=== PATIENT | female | born 1945 | race Hispanic/Latino ===

== ENCOUNTER → 2020-08-04 | Outpatient (CLI) | payer MEDICARE ==
[~2020-08-04] MED LIST: ASPI-1012 PO; ATOR10 PO; GLIP2.5T2 PO; HYDR-4457 PO; INSU10VI3 SQ; IOHEXOL 350 MG/ML 100ML INFUS..BTL IV ONE; LISI-809 PO; LORA10CA9 PO; METF-446 PO; RANI150C4 PO
== END | disposition home or self-care (01) ==
LOC: RAH 07-25 08:01
PROVIDERS: ATTEND Internal Medicine Gastroenterology
DX: R10.33 Periumbilical pain (principal); R10.9 Unspecified abdominal pain
CPT/HCPCS: 74178; Q9967

== ENCOUNTER 2021-11-08 08:22 | Day surgery (SDC) | payer OTHER, MEDICARE ==
[2021-11-06 10:00] VITALS: BP 113/51
[2021-11-06 10:25] LABS: BASOPHILS % (AUTO) 0.5 % (0.0-5.0); EOSINOPHILS % (AUTO) 3.5 % (0.0-8.0); HEMATOCRIT 31.9 % (36-48); MEAN CORPUSCULAR HEMOGLOBIN 30.6 pg (27.0-33.0); MEAN CORPUSCULAR HGB CONC 31.7 g/dL (32.0-36.0); MEAN CORPUSCULAR VOLUME 96.7 fL (79-99); MONOCYTES % (AUTO) 6.2 % (3.0-13.0); NEUTROPHILS % (AUTO) 57.6 % (40.0-77.0); PLATELET COUNT (AUTO) 185 K/uL (130-400); RED CELL DISTRIBUTION WIDTH 13.1 % (11.0-15.5)
[2021-11-06 10:34] LABS: CREATININE 0.9 mg/dL (0.5-1.5); POTASSIUM 3.4 mmol/L (3.5-5.1)
[2021-11-08] VITALS (18 sets, daily range): BP systolic 120–144; BP diastolic 41–66
[~2021-11-08] VITALS: Ht 162.6 cm; Wt 62.2 kg
[~2021-11-08 08:22] MED LIST changes: +CEFAZOLIN SODIUM 1 GM VIAL IVP SCH; -IOHEXOL 350 MG/ML 100ML INFUS..BTL IV ONE; -LISI-809 PO; +LISI5TAB21 PO
[2021-11-08] MEDS ORDERED: 0.9%NACL 1000ML 1,000 ML IV ONE (09:09)
[2021-11-08] MEDS ORDERED: OMEP40CA21 PO (09:39)
[2021-11-08] MEDS ORDERED: FURO20TA4 PO (09:39)
[2021-11-08] MEDS ORDERED: ATOR20TA65 PO (09:39)
[2021-11-08] MEDS ORDERED: MONT-39 PO (09:39)
[2021-11-08] MEDS ORDERED: DICY20TA3 PO (09:39)
[2021-11-08] MEDS ORDERED: VITAMIN D3 PO (09:39)
[2021-11-08] MEDS ORDERED: LISI2.5T13 PO (09:39)
[2021-11-08 10:03] LABS: CREATININE 0.9 mg/dL (0.5-1.5); POTASSIUM 3.5 mmol/L (3.5-5.1)
[2021-11-08] MEDS ORDERED: SUCCINYLCHOLINE CHLORIDE 20 MG/ML 10 ML VIAL ONE (10:17)
[2021-11-08] MEDS ORDERED: PROPOFOL 10 MG/ML 20ML VIAL IV ONE (10:17)
[2021-11-08] MEDS ORDERED: ROCURONIUM 10MG/1ML SYR 10 MG/ML ML ONE (10:18)
[2021-11-08] MEDS ORDERED: MIDAZOLAM HCL 1 MG/ML 2ML VIAL ONE (10:18)
[2021-11-08] MEDS ORDERED: FENTANYL CITRATE PF 50 MCG/1 ML 2ML VIAL ONE ×2 (10:18→13:05)
[2021-11-08] MEDS ORDERED: EPINEPHRINE 1 MG/ML 30ML VIAL IJ ONE ×2 (10:19→11:40)
[2021-11-08] MEDS ORDERED: ROPIVACAINE 0.5% 5MG/ML 30ML IJ ONE (10:22)
[2021-11-08] MEDS ORDERED: EPHEDRINE SULFATE 50 MG/ML AMPULE ONE (11:19)
[2021-11-08] MEDS ORDERED: NEOSTIGMINE 5MG/5ML SYR IV ONE (14:36)
[2021-11-08] MEDS ORDERED: GLYCOPYRROLATE 1 MG/5 ML SYRINGE ONE (14:36)
[2021-11-08] MEDS ORDERED: CEPH500B PO (14:47)
[2021-11-08] MEDS ORDERED: HYDR-4060 PO (14:47)
[2021-11-08] MEDS ORDERED: ONDANSETRON 4MG INJ ONE (15:33)
== END 2021-11-08 16:43 | disposition home or self-care (01) ==
LOC: DAH 08:22
PROVIDERS: ATTEND Orthopaedic Surgery
DX: M75.122 Complete rotator cuff tear or rupture of left shoulder, not specified as traumatic (principal); G89.29 Other chronic pain; E11.9 Type 2 diabetes mellitus without complications; I10 Essential (primary) hypertension; M19.012 Primary osteoarthritis, left shoulder; E78.5 Hyperlipidemia, unspecified; K21.9 Gastro-esophageal reflux disease without esophagitis; Z79.84 Long term (current) use of oral hypoglycemic drugs; Z79.82 Long term (current) use of aspirin; Z79.899 Other long term (current) drug therapy; Z20.822 Contact with and (suspected) exposure to COVID-19
CPT/HCPCS: 80048 ×2; 85025; 87426; 36415 ×2; 29827; 29826; 29824; 82948 ×2; J7030 ×2; A4565; J3010 ×2; J0690; J3490 ×2; J2710; J0330; J0171 ×2; J2250; J2704; J2405; J2795; A6204; A4649 ×3; A4930 ×2; C1713 ×4; A5120; A4215; A4223; A4222; A4221; A4663

== ENCOUNTER → 2021-11-23 | Outpatient (CLI) | payer OTHER, MEDICARE ==
[~2021-11-23] MED LIST changes: -ASPI-1012 PO; -ATOR10 PO; +ATOR20TA65 PO; -CEFAZOLIN SODIUM 1 GM VIAL IVP SCH; +CEPH500B PO; +DICY20TA3 PO; +FURO20TA4 PO; +HYDR-4060 PO; -HYDR-4457 PO; -INSU10VI3 SQ; +LISI2.5T13 PO; -LISI5TAB21 PO; +MONT-39 PO; +OMEP40CA21 PO; -RANI150C4 PO; +VITAMIN D3 PO
== END | disposition home or self-care (01) ==
LOC: RAH 10:32
PROVIDERS: ATTEND Internal Medicine Gastroenterology
DX: R10.13 Epigastric pain (principal); R14.0 Abdominal distension (gaseous)
CPT/HCPCS: 78264; A9541